=== PATIENT | female | born 1995 | race African-American/Black ===

== ENCOUNTER 2024-08-31 00:57 | Emergency (ER) | payer SELFPAY ==
[~2024-08-31] VITALS: Ht 165.1 cm; Wt 77.0 kg
[2024-08-31 01:01] VITALS: TEMP 36.9; O2SAT 100
[2024-08-31] MEDS: LIDOCAINE HCL/PF 1% 10 MG/ML 5ML VIAL INFIL ONE ×2 (01:40→03:53)
[2024-08-31] MEDS: BACITRACIN ZINC OINT UDPKT TOP ONE (01:40)
[2024-08-31] MEDS: TETANUS, DIPHTHERIA, PERTUSSIS VAC/PF 0.5ML (>10YR OLD) IM ONE (02:07)
[2024-08-31] MEDS: HYDROCODONE/ACETAMINOPHEN 5/325MG TABLET PO ONE (02:12)
[2024-08-31] MEDS ORDERED: CEFAZOLIN 20MG/ML SYR IV ONE (04:15)
[2024-08-31] MEDS: CEFAZOLIN 2GM/100ML 100 ML IV NR (04:51)
[2024-08-31] MEDS ORDERED: CEPH500C2 MT (05:36)
[2024-08-31 05:59] VITALS: BP 110/51; PULSE 78; RESP 14; O2SAT 98
== END 2024-08-31 06:02 | disposition home or self-care (01) ==
LOC: ER 00:57 → EDSEX 00:57 → ER 06:02
DX: S61.412A Laceration without foreign body of left hand, initial encounter (principal); F19.90 Other psychoactive substance use, unspecified, uncomplicated; W22.09XA Striking against other stationary object, initial encounter; Y93.89 Activity, other specified; Y92.89 Other specified places as the place of occurrence of the external cause; Y99.8 Other external cause status
CPT/HCPCS: 73130; 90715; 12004; 90471; 96365; 99284; J0690; J2003; Z7610 ×2